=== PATIENT | female | born 1950 | race Caucasian/White ===

== ENCOUNTER 2024-12-23 08:42 | Observation (INO) ==
--- NOTE | 2024-11-27 16:13 | PAT Medication Instructions ---
Medication Instructions Date of Service November 27, 2024 Home Medications aspirin 81 mg tablet,delayed release (Adult Low Dose Aspirin) 81 mg PO DAILY multivitamin 1 tab PO DAILY calcium 600 mg (as carbonate)-vit D3 5 mcg (200 unit)-minerals tablet 1 tab PO DAILY escitalopram oxalate 10 mg tablet (Lexapro) 20 mg PO QAM ASK your prescriber and surgeon aspirin 81 mg tablet,delayed release (Adult Low Dose Aspirin) 81 mg PO DAILY DO NOT take the morning of surgery multivitamin 1 tab PO DAILY calcium 600 mg (as carbonate)-vit D3 5 mcg (200 unit)-minerals tablet 1 tab PO DAILY Take morning of surgery With a small sip of water, OTHERWISE NOTHING TO EAT OR DRINK AFTER MIDNIGHT: escitalopram oxalate 10 mg tablet (Lexapro) 20 mg PO QAM Other Notes If you have any questions please call us at [phone] or [phone] or [phone] or [phone]
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
[~2024-12-23 08:42] MED LIST: ROPIVACAINE 0.5% 5 MG/ML 30 ML VIAL ONE
[2024-12-23] MEDS ORDERED: MIDAZOLAM HCL 1 MG/ML 2ML VIAL ONE (09:09)
[2024-12-23] MEDS ORDERED: ONDANSETRON INJ 2 MG/ML 2 ML VIAL ONE (09:09)
[2024-12-23] MEDS ORDERED: PROPOFOL IV EMULSION 10 MG/ML 20 ML VIAL IV ONE ×2 (09:09→11:53)
[2024-12-23] MEDS ORDERED: DEXAMETHASONE SOD INJ 4 MG/ML VIAL ONE (09:09)
[2024-12-23] MEDS ORDERED: ROCURONIUM BROMIDE 10 MG/ML 5 ML VIAL IV ONE (09:09)
[2024-12-23] MEDS ORDERED: fentaNYL citrate PF 100 MCG/2 ML VIAL ONE (09:09)
[2024-12-23] MEDS ORDERED: SUGAMMADEX SODIUM 200 MG/2 ML VIAL IV ONE (09:10)
[2024-12-23] MEDS: CeleBREX 200 MG CAP PO SCH (09:30)
[2024-12-23] MEDS: LR 15ML/HR IV SCH (09:30)
[2024-12-23] MEDS: FAMOTIDINE 20 MG TAB PO SCH (09:30)
[2024-12-23] MEDS: dexAMETHasone**PF** 10 MG/ML VIAL IV SCH (09:30)
[2024-12-23] MEDS: LR 60ML/HR IV SCH (09:30)
[2024-12-23] MEDS: ACETAMINOPHEN 500 MG TAB PO SCH ×2 (09:30→15:01)
[2024-12-23] MEDS ORDERED: ATROPINE SULFATE 0.1 MG/ML 10ML SYR IV PRN (10:15)
[2024-12-23] MEDS ORDERED: fentaNYL citrate PF 100 MCG/2 ML VIAL IV PRN (10:15)
[2024-12-23] MEDS ORDERED: ePHEDrine sulfate 50 MG/ML AMP IV PRN (10:15)
[2024-12-23] MEDS ORDERED: HYDROmorphone INJ 1 MG/ML SYRINGE IV PRN (10:15)
[2024-12-23] MEDS ORDERED: ONDANSETRON INJ 2 MG/ML 2 ML VIAL IV PRN ×2 (10:15→14:21)
--- NOTE | 2024-12-23 10:42 | History & Physical Bridge Note ---
Date of Service December 23, 2024 History & Physical Bridge Note I have examined the patient, reviewed the History & Physical and in the interval since the performance of the History & Physical I have noted the following changes of clinical significance: no changes noted
[2024-12-23] MEDS: ceFAZolin 2000MG 2,000 MG/15 ML SYR IV SCH (11:06)
[2024-12-23] MEDS: VANCOMYCIN HCL 1000MG/20ML VIAL ONE (11:41)
[2024-12-23] MEDS: ORTHO JOINT ANESTHETIC ONE (11:41)
[2024-12-23] MEDS: ROPIV 0.5% 246mg, Ketorolac 30mg, EPINEPHrine 0.5mg in NSS INFIL SCH (11:41)
[2024-12-23] MEDS ORDERED: PHENYLEPHRINE HCL 10 MG/ML VIAL ONE (11:43)
[2024-12-23] MEDS: TRANEXAMIC ACID 1,000 MG **IV Intra-op IV SCH (11:54)
--- NOTE | 2024-12-23 12:58 | Operative Report ---
PG Post Operative Report Pre & Post Diagnosis Operation Date: 12/23/24 10:40 Pre-Op Diagnosis: Left Knee Degenerative Joint Disease Post-Op Diagnosis: Left Knee Degenerative Joint Disease I identified the patient and participated in the time-out.: Yes Procedure Operation Date: 12/23/24 10:40 Actual Procedures p Left Total Knee Arthroplasty(Left) - Naseem Johnson MD Surgeon Naseem Johnson MD Banking Teacher Og Youngblood PA-C Estimated Blood Loss 50 Findings Consistent with Post-Op Diagnosis Operative findings of advanced left knee DJD. She had extensive grade 4 [id number] disease the entire medial compartment. Slight varus deformity to her knee and a small flexion contracture. Moderate-sized joint effusion. Specimens Left knee sent for pathology. Anesthesia Type Spinal MAC Complications none Disposition Accompanied Patient To Recovery: No Indications Patient is a 74-year-old female whose had a several year history of increasing bilateral knee pain discomfort left side but worse than the right. She been through extensive conservative treatments became less successful over time. X- rays showed bilateral knee arthritis. She elected proceed with left total knee arthroplasty. Description of Procedure Operative implants consist of: 1 Biomet Vanguard size 62.5 left posterior stabilized femoral component. 2. Biomet size 67 tibial tray. 3. 10 mm posterior stabilized polyethylene insert. 4. 31 x 8 all poly patella. The patient was taken to the op room, identified, placed on the operating table in the supine position. All conductors were appropriately padded. IV antibiotics arrived by anesthesia team. A spinal anesthetic and adductor canal block had been provided in the holding area. A Simons catheter was placed in sterile fashion. A left-sided tourniquet was then placed in the left lower extremity was then prepped and draped in usual sterile fashion. Left lower extremity was then elevated and exsanguinated with use of an Esmarch and the tourniquet was placed at 300 mmHg. An anterior approach left knee was then performed to longitudinal incision centered over the patella. Sharp dissection was through subcutaneous tissue down the extensor mechanism. A medial parapatellar arthrotomy incision was made. Some subperiosteal dissection was carried out medially. The fat pad was dissected release patella tendon. Lateral patellofemoral ligament was released. Patella subluxated laterally and the knee was flexed. The osteophytes taken off distal femur. The ACL and PCL were then released from the distal femur and the tibia subluxated anteriorly. The external treatment LYMErix then placed on the anterior face of the tibia and adjusted 14 mm medially. The proximal tibia cut was made remove out of millimeter bone at most from the most efficient aspect of the medial side. Some osteophytes taken off medially. The tibia was then sized to a size 67. Attention drawn the femur. The distal femur was entered with a sharp drill. Intramedullary canal was suction. A left 5 degree valgus cutting guide was placed. The distal femoral cutting block was pinned in place. This femoral cut was made to take an additional 3 mm of bone off distal femur. The femur was then sized to a size 62.5. The AP cutting block was pinned parallel to the epicondylar axis which was 4 degrees of external rotation. The anterior cut, anterior chamfer, posterior cut, posterior chamfer cuts were made. The box cutting guide was placed in a just slight lateral box cut was made. The knee was flexed. The remnants of the medial and lateral menisci were excised. The osteophytes taken off the posterior aspect of the femur. A trial femoral component was placed. The tibial tray was pinned in Joana external rotation and the drill and stem punch were used to create defect in the proximal tibia for the tibial tray. Knee was then trialed and the 10 mm insert fit most appropriately. Attention drawn the patella. The patella was cleaned of all soft tissue. Patella thickness measured 20 mm in thickness was cut down to 13. Was sized to a size 31 patella. The lug holes were drilled for 31 patella. The lateral osteophytes removed. Patella button was placed. Knee was taken through range of motion and the patella tracked nicely with no thumbs test. Attention drawn to placement permanent components. All trial components were removed. Bone plug was placed in the distal femur limit blood loss. A double batch Palacos G cement was mixed. A Biomet Vanguard size 62.5 left posterior stabilized femoral component, size 67 tibial tray, 10 mm posterior stabilized polyethylene insert, and a 31 x 8 all poly patella then cemented in place. The knee was brought out into full extension till cement hardened. Final cement check was then performed. The pericapsular tissues were injected with total of 100 cc of Ortho mix. The patient did receive 1 g tranexamic acid. The tourniquet was then let down for final tourniquet time of 53 minutes. Hemostasis assured with electrocautery. Extensor Metros then closed with combination 1 PDS suture #1 Vicryl suture in a [id number] fashion. Extensor Meclomen checked found to be intact. The subcutaneous tissue was then closed with 2 Dexon suture in a buried interrupted fashion and the skin was closed with skin jun. Leg was then cleaned and dried and a sterile dres sing close Xeroform, 4 fours, sterile cast padding, Arslan bandage were applied. Patient then transferred to the recovery room in stable condition. Patient tolerated the procedure well and there were no complications. Og Youngblood, my physician clinical data assistant, was present for the entire procedure. His assistance was essential and required for appropriate patient positioning, prepping and draping, surgical exposure, performing the technical details of the operation, placement the implants, closure of the wound, and placement of the sterile bandage. I attest to the content of the Intraoperative Record and any orders documented therein. Any exceptions are noted below.
--- NOTE | 2024-12-23 13:10 | XRay Report ---
XR knee LT 1 or 2V routine CLINICAL HISTORY: Postoperative evaluation. COMPARISON: Left knee radiographs August 20, 2024. FINDINGS: Alignment of the total left knee arthroplasty is anatomic. There is no periprosthetic frac ture or unexpected radiopaque foreign body. There are skin jun. IMPRESSION: Expected findings following total left knee arthroplasty. ACT 112: Negative or not required by law. Electronically signed by: Ino Bravo M.D. 12/23/2024 1:09 PM
[2024-12-23] MEDS ORDERED: MAGNESIUM HYDROXIDE SUSP 30 ML UDC PO PRN (14:21)
[2024-12-23] MEDS ORDERED: HYDROmorphone INJ 0.5 MG/0.5 ML SYR IV PRN (14:21)
[2024-12-23] MEDS ORDERED: METOCLOPRAMIDE HCL INJ 5 MG/ML 2 ML VIAL IV PRN (14:21)
[2024-12-23] MEDS ORDERED: NALOXONE HCL 0.4 MG/1 ML VIAL/CARP IV PRN (14:21)
[2024-12-23] MEDS ORDERED: ALUMINUM/MAGNESIUM SUSP 30 ML UDC PO PRN (14:21)
[2024-12-23] MEDS ORDERED: bisacodyL 10 MG SUPP PR PRN (14:21)
[2024-12-23] MEDS: KETOROLAC TROMETHAMINE 15 MG/ML VIAL IV SCH (15:01)
--- NOTE | 2024-12-23 15:56 | Anesthesiology Progress Note ---
Date of Service December 23, 2024 Anesthesia Post Procedure Vital Signs Vital Signs: Temp Pulse Pulse Pulse Resp BP Pulse Ox 12/23/24 14:59 74 18 120/69 95 12/23/24 14:24 78 18 130/75 92 12/23/24 13:50 36.5 C 77 16 124/72 94 12/23/24 13:40 79 15 119/67 95 12/23/24 13:25 36.4 C L 75 13 118/66 96 12/23/24 13:15 74 15 122/65 95 12/23/24 13:05 77 15 123/72 97 12/23/24 12:55 79 17 133/71 95 12/23/24 12:46 36.0 C L 89 14 130/74 94 12/23/24 09:17 36.9 C 90 18 135/77 94 O2 Del Method O2 Flow Rate 12/23/24 14:59 Room Air 12/23/24 14:24 Room Air 12/23/24 13:50 Room Air 12/23/24 13:40 Nasal Cannula 2 12/23/24 13:25 Nasal Cannula 2 12/23/24 13:15 Nasal Cannula 2 12/23/24 13:05 Nasal Cannula 2 12/23/24 12:55 Nasal Cannula 2 12/23/24 12:46 Nasal Cannula 2 12/23/24 09:17 Room Air Notes Mental Status: alert / awake / arousable Patient Amnestic to Procedure: Yes Nausea / Vomiting: adequately controlled Pain: adequately controlled Airway Patency, RR, SpO2: stable & adequate BP & HR: stable & adequate Hydration State: stable & adequate Neuraxial Anesthesia: was administered and sensory block is resolving Anesthetic Complications: no major complications apparent
[2024-12-23] MEDS: ASCORBIC ACID 500 MG TAB PO SCH (17:29)
[2024-12-23] MEDS: TRANEXAMIC ACID / 0.7% NACL 1,000 MG/100 ML BAG IV SCH (17:29)
[2024-12-23] MEDS: ceFAZolin 1000MG 1,000 MG/7.5 ML SYR IV SCH (17:49)
[2024-12-23] MEDS: DOCUSATE SODIUM 100 MG CAP PO SCH (20:34)
[2024-12-23] MEDS: SENNA 8.6 MG TAB PO SCH (20:34)
[2024-12-23] MEDS: ASPIRIN 81 MG ECTAB PO SCH (20:34)
[2024-12-23] MEDS ORDERED: SENNA 8.6 MG TAB PO SCH (21:00)
[2024-12-24 07:38] LABS: BUN Creatinine Ratio 15.7 (10-20); Calcium 8.3 mg/dl (8.6-10.3); Creatinine Clr Calc Pharmacy 47.3 ml/min; Hematocrit (blood only) 34.3 % (37.0-47.0); Hemoglobin 11.9 g/dl (12.0-16.0); Mean Corpuscular Hemoglobin 31.6 pg (25.0-34.0); Mean Corpuscular Hgb Conc 34.7 g/dL (32.0-36.0); Platelet Count 246 K/uL (130-400); Potassium 3.9 mmol/L (3.5-5.1); RDW Standard Deviation 40.2 fL (36.4-46.3); Red Blood Count 3.77 M/uL (4.20-5.40); White Blood Count 14.49 K/ul (4.8-10.8)
[2024-12-24] MEDS: dexAMETHasone 10 MG in SYRINGE 0 ML IV SCH (07:54)
[2024-12-24] MEDS: CALCIUM 600MG + VIT D 400 IU TAB PO SCH (08:02)
[2024-12-24] MEDS: ESCITALOPRAM OXALATE 20 MG TAB PO SCH (08:02)
[2024-12-24] MEDS: MULTIVITAMIN TAB PO SCH (08:02)
--- NOTE | 2024-12-24 08:46 | Orthopedic Progress Note ---
Date of Service December 24, 2024 Assessment & Plan (1) Status post total left knee replacement: (2) Aftercare following left knee joint replacement surgery: Plan 74-year-old woman POD# 1 s/p left total knee replacement, doing well overall. Pain is well-controlled. Medically stable. Postop x-rays well-appearing. She is neurologically intact. Patient is having some calf pain, and was tender to this area on exam today, with a questionable positive Homans' sign, so a venous Doppler ultrasound is being ordered to rule out DVT. Plan: 1. DVT prophylaxis w/ TEDs, SCDs, ASA 81 mg BID. - Stat Doppler ultrasound to left lower extremity is ordered to rule out DVT. 2. PT/OT as tolerated. WBAT on the L LE. Encourage heel slides, SLR, full knee extension w/ quad sets. 3. Pain control doing well with current pain regimen. 4. Dressing change POD#2 per discharge instructions. Do not get dressing wet for 5 days. 5. Disposition - plan to D/C tomorrow morning/midday, which is when the patient's son will be available to transport her to the [facility] for postoperative recovery and rehab. She will be living with her sister out there for short time while she does physical therapy. 6. F/u 2 weeks post-op w/ orthopedics (Dr. Johnson's team), or as previously scheduled, for first post-op visit. Subjective Patient is POD# 1 s/p left total knee arthroplasty by Dr. Johnson on 12/23/2024. Patient says her pain is well-controlled this morning. Denies CP, SOB, N/V, L LE paresthesia. However, she does admit to some swelling in the left ankle/foot and lower leg, in addition to some pain in her calf. Her son is not able to come and pick her up to transport her out into [facility], so she does need to stay here another night. She is going to stay with her sister in the [facility] and is already set up with physical therapy out there. Review of Systems All systems reviewed & are unremarkable except as noted in HPI & below. Physical Exam GENERAL: AA&Ox3, NAD. Pleasant, affect is calm. Sitting upright in bed and appears comfortable. RESPIRATORY: Normal respiratory effort with no signs of distress. CHEST/AXILLA: Chest movement symmetrical. No deformities noted. CARDIOVASCULAR: No edema noted. SKIN: [place], warm and dry. MS/EXTREMITY: Knee dressing & DEMOND wrap c/d/i. LORETA hose donned to contralateral LE. SCDs in place. + ankle dorsi/plantarflexion. NVI distally. Calf soft/NT. PT/DP pulses intact, 2+. Able to SLR on her own. + Tender to left calf. Questionable positive (+) Homans' sign. Results & Data Results & Data Laboratory Results . Laboratory Results - last 48 hr 12/24/24 07:00 WBC 14.49 H RBC 3.77 L Hgb 11.9 L Hct 34.3 L MCV 91.0 MCH 31.6 MCHC 34.7 RDW Std Deviation 40.2 RDW Coeff of Reba 12.0 Plt Count 246 MPV 10.0 Sodium 140 Potassium 3.9 Chloride 107 Carbon Dioxide 29 Anion Gap 4 BUN 14 Creatinine 0.89 Est Cr Clr Drug Dosing 47.3 eGFR 68.84 BUN/Creatinine Ratio 15.7 Glucose 100 H Calcium 8.3 L Diagnostic Findings Knee X-Ray 12/23/24 12:48 XR knee LT 1 or 2V routine CLINICAL HISTORY: Postoperative evaluation. COMPARISON: Left knee radiographs August 20, 2024. FINDINGS: Alignment of the total left knee arthroplasty is anatomic. There is no periprosthetic fracture or unexpected radiopaque foreign body. There are skin jun. IMPRESSION: Expected findings following total left knee arthroplasty. ACT 112: Negative or not required by law. Electronically signed by: Ino Bravo M.D. 12/23/2024 1:09 PM PG Care Time/CCT Total # of Minutes Spent Total Time Spent with Patient: Total time spent is greater than 50% in coordination of care (as documented) at patient's floor/unit and/or counseling patient: [place] [address] Post Operative Follow-Up Patient Type Established History Problem Focused Exam Problem Focused Medical Decision Making Straight Forward Diagnoses Status post total left knee replacement Z96.652 Aftercare following left knee joint replacement surgery Z47.1; Z96.652
[2024-12-24] MEDS ORDERED: MULTIVITAMIN TAB PO SCH (09:00)
[2024-12-24] MEDS ORDERED: ERGOCALCIFEROL 1250 MCG (50,000 UNITS) CAP PO SCH (09:00)
[2024-12-24] MEDS ORDERED: ATORVASTATIN 10 MG TAB PO SCH (09:00)
--- NOTE | 2024-12-24 09:49 | Discharge Summary ---
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 She presents here for evaluation of her knees. She has got about a 2-year history of progressive increasing bilateral knee pain and discomfort that has been managed at [facility]. She has had both steroid shots and gel shots which have become a bit less successful over time. She did have a gel shot which did not help much at all and then she just recently finished a series of 3 shots just last week. She describes mostly medial pain. The left knee is worse than the right. She has had difficulty maintaining an active lifestyle due to her knee pain. This 74-year-old white female with fairly advanced bilateral medial compartment DJD, left side a bit worse than the right. She just had a gel shot in her knee a week ago. The first gel shot did not help. We talked about treatment. The definitive treatment for her knees is knee replacement which it looks like she has headed that way. She just had the shot in her knee, so we cannot do anything right now and we should give that some time to work. After further discussion, she is going to go about her way and come back in 3 months. We will see how she is doing. If she is not doing any better, we will consider knee replacement surgery. She might be a partial knee candidate. We would likely do the left knee first. Admission Exam (Per Admitting) Gen: Physical examination shows a pleasant somewhat frail, middle-aged female. She ambulates quite well independently. Musculoskeletal: She does have varus alignment to both knees. She does have bony hypertrophy medially. Range of motion of the left is about 5 to 120 and the right is 0 to 125. There is no instability in either knee. No particular pain with hip motion. XR Exam: Four views of the both knees from today are reviewed. It shows fairly advanced bilateral knee DJD, primarily involving the medial compartment. The left knee is probably a bit worse than the right. She has got some osteophytes primarily medially. Principal Diagnosis Same as "Discharge Diagnosis" noted below under Discharge Instructions. Discharge Exam 12/24/24: GENERAL: AA&Ox3, NAD. Pleasant, affect is calm. Sitting upright in bed and appears comfortable. RESPIRATORY: Normal respiratory effort with no signs of distress. CHEST/AXILLA: Chest movement symmetrical. No deformities noted. CARDIOVASCULAR: No edema noted. SKIN: [place], warm and dry. MS/EXTREMITY: Knee dressing & DEMOND wrap c/d/i. LORETA hose donned to contralateral LE. SCDs in place. + ankle dorsi/plantarflexion. NVI distally. Calf soft/NT. PT/DP pulses intact, 2+. Able to SLR on her own. + Tender to left calf. Questionable positive (+) Homans' sign. 12/25/24: .alert and oriented. NAD. VSS Left leg: dressing clean, dry, intact. Able to dorsiflex and plantarflex. NVI Discharge Data Procedures Performed Operation Date: 12/23/24 10:40 Actual Procedures p Left Total Knee Arthroplasty(Left) - Naseem Johnson MD Ordered Studies 12/23/24 05:00 US - OR guided needle placemen Routine 12/24/24 08:37 US venous doppler LE LT Stat Hospital Course (1) Status post total left knee replacement: (2) Aftercare following left knee joint replacement surgery: Plan On December 23, 2024 Reanna arrived at [facility] operating room and underwent a left total knee replacement without complications. Patient had an adductor canal block and spinal anesthetic for the procedure. Postoperatively, patient was transferred to the general orthopedic floor in stable condition and eventually started onto aspirin 81 mg twice daily for DVT prophylaxis as appropriate. Patient did undergo a left lower extremity venous Doppler ultrasound to rule out DVT; this was found to be negative. Otherwise, patient's hospital course was uneventful. On postoperative day #1, patient's vital signs were stable and pain was well-controlled. Patient was able to participate well with physical therapy throughout her stay, safely performing the necessary ambulation and range of motion exercises and properly demonstrating ADL tasks. Patient did remain in the hospital until postop day #2 due to transportation issues out of town. Patient was then discharged to self- care and assistance from her sister and son in stable condition, with physical therapy services to begin in the [place], [place] area. Patient will follow-up with orthopedics in 2 to 3 weeks for postoperative care. PG Care Time/CCT Total # of Minutes Spent Total Time Spent with Patient: Total time spent is greater than 50% in coordination of care (as documented) at patient's floor/unit and/or counseling patient: Discharge Plan Discharge Items Patient Disposition: Home - Home Health Services Reason For Visit: Osteoarthitis Knee Left Discharge Diagnosis: Left Knee Replacement Activity: Per Instructions section Non-emergency contact: Surgeon Call non-emergency contact if: you have any medication questions Follow-up/Referrals: Naseem Johnson MD [Physician] - (01/07/25 @11:50) Mehrdad Vaughn, [Primary Care Provider] - [facility] [Non-Staff] - Diet: Regular Addtl Attending Provider Instructions: ACTIVITY RECOMMENDATIONS: Diet: * You may resume previous diet. Physical Therapy: * You will go to physical therapy three times each week for four to six weeks after your surgery in order to regain your knee range of motion and to retrain your knee to work properly. * It is just as important to make sure you are getting your knee perfectly straight as it is to regain your knee bend. * Taking a pain pill an hour before therapy can help you have a more productive and comfortable therapy session. Home Exercise: * You were shown a series of exercises (heel props, heel slides, etc.) in the hospital. Do these exercises three to four times each day including the exercises you were shown in physical therapy. Walking: * Get up and walk several times each day. For the first four weeks, try not to stand or walk for more than one hour at a time. If you do stand or walk for more than one hour, you will not hurt anything, but your knee and leg will likely swell. * As you feel comfortable, you may change from the walker or crutches to a cane and then to independent walking. MEDICATIONS: New Medicine: * You will likely be taking one or more of these medications: 1. Oxycodone - A quick and shorter-acting pain medication. Take one to two tablets every six hours to lessen your pain. 2. Aspirin - Thins your blood to lessen the chance of forming a blood clot. * The most common side effects of pain medicine and iron are nausea and constipation. If nausea or constipation is too much of a problem or if you have any questions about your new medicines or doses, call [facility] at . We will try to help you manage these issues. "VERY IMPORTANT TO READ AND REVIEW" Pain: * The immediate post-operative period after knee replacement surgery is often quite painful. * You are given a prescription for pain medicine. You should take it, as directed, when you need it, especially before physical therapy and before going to bed. Pain that interferes with sleep is very common and can last several months. * You will likely need pain medicine for the first four to six weeks. It will not stop all of the pain. The pain will lessen and as you feel better, you may change to milder pain medicine such as Tylenol. * The most common side effects of pain medicine are nausea and constipation, so don't take more than you need. SPECIAL CARE INSTRUCTIONS: TEDs/Elastic Stockings: * The white elastic stockings help limit swelling and prevent blood clots from forming in your legs. The more you wear them, the more they work. * Wear them for six weeks after knee replacement surgery and four weeks after partial knee replacement. Incision Site Care: * Remove dressing postoperative day 2 and then shower. Keep direct shower pressure off the incision site. * After showering, cover jun with dry gauze and change daily or more frequently if the dressing is getting saturated with drainage. * Use the LORETA stockings to hold dressing in place. DO NOT apply tape on the skin. * May completely stop using bandage if wound is dry and no drainage * Jun are removed between 2 and 3 weeks post-op. If your follow-up appointment is made before 2 weeks, please have your appointment re- scheduled. It is too early to remove the jun. Prevention of Infection: * Take antibiotics one hour before any dental cleaning, dental work, urological procedure, gastrointestinal procedure or any invasive surgery in order to prevent your new joint from getting infected. * You may get the antibiotics from the doctor performing the procedure or you may call our office at [phone] before and we will call in a prescription to the pharmacy of your choice. Things to Watch For: * Drainage from the incision site that occurs more than one week after your surgery. * Severely increased knee/leg pain or swelling. * Increased redness at the incision site. * Fever above 102 degrees Fahrenheit. * Unusual chest pain or shortness of breath. * Unusual pain or burning with urination. Call [facility] at [phone] with any of the above problems or if you have any questions about your medicines or recovery. FOLLOW UP VISIT: Make an appointment to see your doctor for approximately two weeks after surgery for a progress check and staple removal by calling the office at [phone]. Pending Studies at Discharge: No Stand-Alone Forms: [facility], Smoking Cessation Medications and DC Order Prescriptions: Continued oxycodone 5 mg tablet 5 - 10 mg PO Q8H PRN (Reason: pain) Qty: 40 0RF Rx Instructions: Take as needed for pain. Do not take more than 6 tablets per day. ondansetron 4 mg tablet,disintegrating 4 mg PO Q8 PRN (Reason: nausea) Qty: 20 1RF Rx Instructions: Take as needed for nausea ketorolac 10 mg tablet 10 mg PO Q6 5 Days Qty: 20 0RF Rx Instructions: Take 4 times per day with food for 5 days to lessen pain and swelling. sennosides [Senokot] 8.6 mg tablet 8.6 mg PO BID 14 Days Qty: 28 0RF Rx Instructions: Take two times a day to prevent/treat constipation acetaminophen [Tylenol Extra Strength] 500 mg tablet 1,000 mg PO TID 30 Days Qty: 180 0RF Rx Instructions: Take 3 times per day to lessen pain. cefadroxil 500 mg capsule 500 mg PO BID 7 Days Qty: 14 0RF Rx Instructions: Take 1 cap twice a day to prevent infection aspirin [Phu Low Dose Aspirin] 81 mg tablet,delayed release (DR/EC) 81 mg PO BID 45 Days Qty: 90 0RF Rx Instructions: Take to prevent blood clots. calcium carbonate-vit D3-min 600 mg calcium- 200 unit tablet 1 tab PO DAILY aspirin [Adult Low Dose Aspirin] 81 mg tablet,delayed release (DR/EC) 81 mg PO DAILY multivitamin Tablet 1 tab PO DAILY (DME) [facility] See Rx Instructions .MEDSUPPLY Qty: 1 0RF Rx Instructions: As directed escitalopram oxalate [Lexapro] 10 mg tablet 20 mg PO QAM atorvastatin [Lipitor] 10 mg Tablet 10 mg PO DAILY Rx Instructions: pt has not started ergocalciferol (vitamin D2) [Vitamin D2] 1,250 mcg (50,000 unit) Capsule 1,250 mcg PO DAILY Admission Data Admit Date/Time: 12/23/24 12:48 Attending Provider: Naseem Johnson Admit Provider: Naseem Johnson Primary Care Provider: Mehrdad Vaughn Other Providers: [facility] Other Interventions: Discharge Summary Assessment (RN) Last Done: 12/25/24 07:38
--- NOTE | 2024-12-24 11:09 | Ultrasound Report ---
LEFT LOWER EXTREMITY VENOUS DOPPLER HISTORY: Acute pain and swelling of the left lower leg LLE swelling, calf pain; r/o DVT COMPARISON STUDY: None. FINDINGS: There is normal compressibility, flow, and augmentation within the left lower extremity eulalio p venous system. IMPRESSION: No DVT within the left lower extremity. ACT 112: Negative or not required by law. Electronically signed by: Butch Valdes M.D. 12/24/2024 11:08 AM
[2024-12-24] MEDS: oxyCODONE HCL IR 5 MG TAB (IMMEDIATE RELEASE) PO PRN (16:20)
[2024-12-25 05:32] VITALS: O2SAT 95
--- NOTE | 2024-12-25 07:21 | Orthopedic Progress Note ---
Date of Service December 25, 2024 Assessment & Plan (1) Status post total left knee replacement: She was seen and examined by Dr. Johnson today. She had a pretty rough night due to pain but the medicine does help. Continue current pain management. DVT prophylaxis: teds, scd's, aspirin PT/OT wbat d/c planning: home with home health today after therapy Dressing change today Subjective .74 year old patient POD 2 from left tka. Had a pretty rough night due to knee pain. Pain medicine does help her. Did not sleep well Review of Systems All systems reviewed & are unremarkable except as noted in HPI & below. Physical Exam .alert and oriented. NAD. VSS Left leg: dressing clean, dry, intact. Able to dorsiflex and plantarflex. NVI Results & Data Results & Data Laboratory Results . Diagnostic Findings . PG Care Time/CCT Total # of Minutes Spent Total Time Spent with Patient: Total time spent is greater than 50% in coordination of care (as documented) at patient's floor/unit and/or counseling patient: Coding Level of Care Code 51437 Post Operative Follow-Up Diagnoses Status post total left knee replacement Z96.652
[2024-12-25 07:51] VITALS: BP 127/73; PULSE 74; RESP 16; TEMP 97.9
== END 2024-12-25 08:32 | disposition home health service (06) ==
LOC: 3E 08:42 → ASU 08:42